=== PATIENT | male | born 1995 | race Two or more races ===

== ENCOUNTER 2022-10-13 15:26 | Emergency (ER) | payer MEDICAID ==
[~2022-10-13] VITALS: Ht 162.6 cm; Wt 75.0 kg
[2022-10-13 15:27] VITALS: TEMP 98.5
[2022-10-13 17:00] VITALS: BP 124/52; PULSE 59; RESP 18
== END 2022-10-13 17:47 | disposition home or self-care (01) ==
LOC: EMS 15:30 → EDBD 15:30 → EMS 17:47
DX: S00.83XA Contusion of other part of head, initial encounter (principal); H11.32 Conjunctival hemorrhage, left eye; Y04.8XXA Assault by other bodily force, initial encounter; Y93.89 Activity, other specified; Y92.89 Other specified places as the place of occurrence of the external cause; Y99.8 Other external cause status
CPT/HCPCS: 99282; Z7502